=== PATIENT | male | born 1940 | race Caucasian/White ===

== ENCOUNTER 2017-02-17 13:44 | Emergency (ER) | payer MEDICARE ==
[~2017-02-17] VITALS: Ht 170.2 cm; Wt 65.0 kg
[~2017-02-17 13:44] MED LIST: ASPIRIN ENTERIC81 MG PO; CALCIUM600 M1 PO; CENTRUM SILVER1 TAB PO; DITROPAN5 MG/TA1 PO; GLUCOSAMINE1 TA1 PO; MOBIC7.5 M1 PO; PROSCAR5 MG PO; TYLENOL325 MG PO
[2017-02-17] MEDS ORDERED: CIPROFLOXACN500 MG PO (14:59)
[2017-02-17 15:18] VITALS: BP 158/89
== END 2017-02-17 15:18 | disposition home or self-care (01) ==
LOC: ED 13:44
PROC: 0HQ3XZZ Repair Left Ear Skin, External Approach (ICD-10-PCS; principal; 2017-02-17)
DX: S01.312A Laceration without foreign body of left ear, initial encounter (principal); W26.8XXA Contact with other sharp object(s), not elsewhere classified, initial encounter; Y93.H2 Activity, gardening and landscaping; Y92.007 Garden or yard of unspecified non-institutional (private) residence as the place of occurrence of the external cause

== ENCOUNTER 2017-02-18 12:33 | Emergency (ER) | payer MEDICARE ==
[~2017-02-18] VITALS: Ht 170.2 cm; Wt 60.0 kg
[~2017-02-18 12:33] MED LIST changes: +CIPROFLOXACN500 MG PO
[2017-02-18 12:56] VITALS: BP 122/62
== END 2017-02-18 13:01 | disposition home or self-care (01) ==
LOC: ED 12:33
DX: Z48.00 Encounter for change or removal of nonsurgical wound dressing (principal)

== ENCOUNTER 2017-02-23 08:48 | Emergency (ER) | payer MEDICARE ==
[~2017-02-23] VITALS: Ht 170.2 cm; Wt 65.0 kg
[2017-02-23 08:59] VITALS: BP 161/81
== END 2017-02-23 09:01 | disposition home or self-care (01) ==
LOC: ED 08:48
DX: S01.312D Laceration without foreign body of left ear, subsequent encounter (principal); X58.XXXD Exposure to other specified factors, subsequent encounter

== ENCOUNTER 2022-09-28 08:18 | Emergency (ER) | payer MEDICARE ==
[~2022-09-28] VITALS: Ht 170.2 cm; Wt 69.4 kg
[2022-09-28 08:24] VITALS: BP 161/84
[2022-09-28 08:30] VITALS: BP 165/81
[2022-09-28 08:46] VITALS: BP 156/88
[2022-09-28] MEDS ORDERED: BACTRIM DS1 TAB PO (08:54)
[2022-09-28 08:57] VITALS: BP 156/88
== END 2022-09-28 08:59 | disposition home or self-care (01) ==
LOC: ED 08:18
DX: S91.331A Puncture wound without foreign body, right foot, initial encounter (principal); W26.8XXA Contact with other sharp object(s), not elsewhere classified, initial encounter; Y92.73 Farm field as the place of occurrence of the external cause